=== PATIENT | female | born 1985 | race Caucasian/White ===

== ENCOUNTER 2016-10-18 14:12 | Outpatient (CLI) | payer MEDICAID | END 2016-10-18 14:13 | disposition home or self-care (01) | DX: M79.671 Pain in right foot (principal) ==

== ENCOUNTER 2017-01-23 10:29 | Outpatient (CLI) | payer MEDICAID ==
--- NOTE | 2017-01-23 11:25 | Ultrasound Report ---
LEFT BREAST ULTRASOUND: 01/23/2017 CLINICAL INDICATION: Palpable abnormality, pain left upper outer quadrant. TECHNIQUE: Real-time scanning was performed with field sales representative static images obtained. FINDINGS: Ultrasound of the region of pain and palpable abnormality identified by the patient was pe rformed. At the 2 o'clock position, 8 cm from the nipple, there is a cluster of simple cysts, measuring in agg regate 1.8 x 0.2 x 0.2 cm. No sonographically suspicious findings are identified. IMPRESSION: BENIGN FINDINGS. RECOMMENDATION: ROUTINE ANNUAL SCREENING, TO COMMENCE AT AGE 42, UNLESS OTHERWISE CLINICALLY INDICATE D. CONTINUED CLINICAL SURVEILLANCE. BIRADS CATEGORY 2-BENIGN FINDINGS. JOB #: [id number] EXT JOB #:[id number]
== END 2017-01-23 10:30 | disposition home or self-care (01) ==
LOC: DI 10:29
PROVIDERS: ATTEND Nurse Practitioner Family
DX: N64.4 Mastodynia (principal)
CPT/HCPCS: 76642

== ENCOUNTER 2017-06-09 08:00 | Outpatient (CLI) | payer MEDICAID | END 2017-06-09 08:01 | disposition home or self-care (01) | LOC: LAB.R 08:00 | PROVIDERS: ATTEND Obstetrics & Gynecology | DX: Z11.3 Encounter for screening for infections with a predominantly sexual mode of transmission (principal) | CPT/HCPCS: 87491; 87591 ==

== ENCOUNTER 2017-06-18 11:52 | Emergency (ER) | payer MEDICAID ==
[2017-06-18] MEDS ORDERED: ONDANSETRON 4 MG/2 ML VIAL IVP STA (12:32)
[2017-06-18] MEDS ORDERED: SODIUM CHLORIDE 0.9% 1,000 ML IV ONE (12:32)
--- NOTE | 2017-06-18 12:35 | ED Physician Documentation ---
PD HPI NVD - Stated complaint Stated Complaint: VOMITING/8WK OB - Chief complaint Chief Complaint: Abd Pain - History obtained from History obtained from: Patient - History of Present Illness Timing - onset: Other ( at 8 weeks Whose had issues with vomiting, worse over the last 24 hours now with some diarrhea but no significant abdominal pain , cramping, or bleeding. No urinary complaints. She tried vitamin B6 and Unisom already without any relief.) Review of Systems Constitutional: denies: Fever, Chills, Fatigue GI: reports: Nausea, Vomiting, Diarrhea. 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 HEENT: Chronic vision loss Psych: Depression Musculoskeletal: None Derm: None - Past Surgical History Past Surgical History: Yes HEENT: Myringotomy (tubes) - Present Medications Home Medications: Ambulatory Orders Medication Instructions Recorded Confirmed Metoclopramide [Reglan] 10 mg PO Q6H PRN #20 tablet 06/18/17 Ondansetron HCl [Zofran] 4 mg PO Q6H PRN #10 tablet 06/18/17 - Allergies Allergies/Adverse Reactions: Allergies Allergy/AdvReac Type Severity Reaction Status Date / Time Sulfa (Sulfonamide Allergy Rash Verified 06/18/17 11:59 Antibiotics) - Social History Does the pt smoke?: No Smoking Status: Never smoker Does the pt drink ETOH?: No Does the pt have substance abuse?: No - Immunizations Immunizations are current?: Yes Immunizations: TDAP >10years/unknown PD ED PE NORMAL - Vitals Vital signs reviewed: Yes - General General: Alert and oriented X 3, No acute distress - HEENT HEENT: PERRL, EOMI, Pharynx benign - Neck Neck: Supple, no meningeal sign, No bony TTP - Cardiac Cardiac: RRR, No murmur - Respiratory Respiratory: No respiratory distress, Clear bilaterally - Abdomen Abdomen: Normal bowel sounds, Soft, Non tender - Female Female : Other (Bedside ultrasound demonstrates single live intrauterine with heart rate of 165.) - Back Back: No CVA TTP, No spinal TTP - Derm Derm: Normal color, Warm and dry - Extremities Extremities: No edema, No calf tenderness / cord - Neuro Neuro: Alert and oriented X 3, Normal speech - Psych Psych: Normal mood, Normal affect Results - Vitals Vitals: Vital Signs - 24 hr 06/18/17 06/18/17 11:58 12:58 Temperature 36.3 C L 36.8 C Heart Rate 89 76 Respiratory 16 12 Rate Blood Pressure 120/71 113/66 O2 Saturation 99 100 Oxygen O2 Source Room air - Labs Labs: Laboratory Tests 06/18/17 12:28 Sodium 134 L Potassium 3.4 L Chloride 105 Carbon Dioxide 20 L Anion Gap 9.0 BUN 9 Creatinine 0.5 Estimated GFR (MDRD) 146 Glucose 85 Calcium 9.6 Total Bilirubin 1.1 H AST 14 ALT 18 Alkaline Phosphatase 29 L Total Protein 6.7 Albumin 4.3 Globulin 2.4 Albumin/Globulin Ratio 1.8 Lipase 23 PD MEDICAL DECISION MAKING - ED course ED course: 31-year-old woman with hyperemesis gravidarum resistant to the usual beginning outpatient treatment. Mildly dehydrated with modest hypokalemia on labs which was repleted orally and passed an oral challenge after a liter of IV fluids and Zofran here. Departure - Departure Disposition: 01 Home, Self Care Clinical Impression: Hyperemesis gravidarum Condition: Good Record reviewed to determine appropriate education?: Yes Instructions: ED Preg Morning Sickness Prescriptions: Metoclopramide [Reglan] 10 mg PO Q6H PRN #20 tablet PRN Reason: Nausea / Vomiting Ondansetron HCl [Zofran] 4 mg PO Q6H PRN #10 tablet PRN Reason: Nausea / Vomiting Comments: Start with the reglan/metoclopramide, add the zofran only if that doesn't work.
[2017-06-18] MEDS ORDERED: ONDANSETRON 4 MG/2 ML VIAL ONE (12:54)
[2017-06-18 13:08] LABS: ALBUMIN/GLOBULIN RATIO 1.8 (1.0-2.2); BILIRUBIN,TOTAL 1.1 mg/dL (0.2-1.0); CALCIUM 9.6 mg/dL (8.5-10.3); CREATININE 0.5 mg/dL (0.4-1.0); POTASSIUM 3.4 mmol/L (3.5-5.0); TOTAL PROTEIN 6.7 g/dL (6.7-8.2)
[2017-06-18] MEDS ORDERED: POTASSIUM BICARB 25 MEQ TABLET PO STA (13:15)
[2017-06-18] MEDS ORDERED: POTASSIUM BICARB 25 MEQ TABLET PO ONE (13:29)
[2017-06-18 14:14] VITALS: BP 110/70
== END 2017-06-18 14:13 | disposition home or self-care (01) ==
LOC: ED 11:52
DX: O21.1 Hyperemesis gravidarum with metabolic disturbance (principal); Z3A.08 8 weeks gestation of pregnancy
CPT/HCPCS: 36415; 80053; 83690; 96361; 96374; 99283; A9270

== ENCOUNTER 2017-07-16 14:58 | Outpatient (CLI) | payer MEDICAID ==
[2017-07-16 15:38] LABS: BILIRUBIN,URINE NEGATIVE (NEGATIVE); GLUCOSE, URINE (UA) NEGATIVE (NEGATIVE); KETONES,URINE (UA) NEGATIVE (NEGATIVE); LEUKOCYTE ESTERASE, URINE NEGATIVE (NEGATIVE); NITRITE,URINE NEGATIVE (NEGATIVE); OCCULT BLOOD,URINE NEGATIVE (NEGATIVE); PROTEIN,URINE NEGATIVE (NEGATIVE); UROBILINOGEN,URINE 0.2 (NORMAL) E.U./dL (NORMAL)
[2017-07-16 15:45] LABS: CLARITY,URINE CLEAR (CLEAR)
[2017-07-16 15:46] LABS: AMORPHOUS SEDIMENT,UR Moderate /LPF; BACTERIA,URINE Few /HPF (None Seen); RBC,URINE 0-5 /HPF (0-5); SQUAMOUS EPITHELIAL CELL,UR FEW Squamous (<= Few)
[2017-07-16 15:54] LABS: BASOPHILS % (AUTO) 0.5 %; EOSINOPHILS % (AUTO) 0.6 %; HGB - HEMOGLOBIN 13.1 g/dL (12.0-16.0); LYMPHOCYTES # (AUTO) 1.4 10^3/uL (1.5-3.5); LYMPHOCYTES % (AUTO) 17.4 %; MEAN CORPUSCULAR VOLUME 91.3 fL (81.0-99.0); MEAN PLATELET VOLUME 8.5 fL (7.9-10.8); MONOCYTES # (AUTO) 0.4 10^3/uL (0.0-1.0); MONOCYTES % (AUTO) 5.7 %; NEUTROPHILS # (AUTO) 5.9 10^3/uL (1.5-6.6); NEUTROPHILS % (AUTO) 75.8 %; PLT - PLATELET COUNT 160 10^3/uL (130-450); RED BLOOD COUNT 4.11 10^6/uL (4.20-5.40); RED CELL DISTRIBUTION WIDTH 13.3 % (12.0-15.0); WHITE BLOOD COUNT 7.8 x10^3/uL (4.8-10.8)
[2017-07-17 13:51] LABS: HIV AG/AB 4TH GEN NON-REACTIVE (NON-REACTIVE)
[2017-07-17 14:01] LABS: HEPATITIS B SURFACE ANTIGEN NON-REACTIVE (NON-REACTIVE)
== END 2017-07-16 14:59 | disposition home or self-care (01) ==
LOC: LAB 14:58
PROVIDERS: ATTEND Obstetrics & Gynecology
DX: Z36.9 Encounter for antenatal screening, unspecified (principal); Z13.79 Encounter for other screening for genetic and chromosomal anomalies
CPT/HCPCS: 36415; 81001; 81599; 82105; 82677; 84163; 84702; 85025; 86336; 86592; 86762; 86850; 86900; 86901; 87340; 87389

== ENCOUNTER 2017-08-07 10:08 | Outpatient (CLI) | payer MEDICAID | END 2017-08-07 10:09 | disposition home or self-care (01) | LOC: LAB 10:08 | PROVIDERS: ATTEND Obstetrics & Gynecology | DX: Z36.9 Encounter for antenatal screening, unspecified (principal) | CPT/HCPCS: 36415; 81599; 82105; 82677; 84163; 84702; 86336 ==

== ENCOUNTER 2017-08-14 14:12 | Outpatient (CLI) | payer SELFPAY | END 2017-08-14 14:13 | disposition home or self-care (01) | LOC: LAB 14:12 | PROVIDERS: ATTEND Obstetrics & Gynecology | DX: Z13.79 Encounter for other screening for genetic and chromosomal anomalies (principal) | CPT/HCPCS: 36415 ==

== ENCOUNTER 2017-08-14 14:57 | Outpatient (CLI) | payer MEDICAID ==
--- NOTE | 2017-08-15 14:11 | Ultrasound Report ---
OB ULTRASOUND: 08/14/2017 CLINICAL INDICATION: Abnormal alpha feta protein screen, evaluate spine and dating. TECHNIQUE: Real-time scanning was performed with inside sales account representative static images obtained. LAST MENSTRUAL PERIOD: 04/23/2017 Clinical Age: 16 weeks 1 day US Age: 17 weeks 4 days EFW Hadlock: 189 grams EFW% Hadlock: > 97% Heart Rate: 154 bpm EDC: 01/28/2018 US EDC: 01/18/2018 BPD Hadlock: 18 weeks 1 day; Mean mm 40 HC Hadlock: 17 weeks 5 days; Mean mm 145 AC Hadlock: 17 weeks 4 days; Mean mm 118 FL Hadlock: 16 weeks 6 days; Mean mm 23 Presentation: variable Placental Location: anterior-L Cervical Length: 5.2 cm Amniotic Fluid: 5.1 cm FINDINGS There is a single viable intrauterine gestation, in variable position. heart rate is 154 BPM. The placenta is anterior, without evidence of previa. Amniotic fluid volume is subjectively normal, with deepest pocket of 5.1 cm. By size, the fetus measures 17 weeks 4 days (16 weeks 1 day by office dating). The spine and calvarium appear unremarkable. There is no sonographic evidence of a neural tube defect at this time. The right ovary demonstrates a cyst, measuring 3.4 cm maximal diameter ( previously 5 cm on office ultrasound per chart notes). No free fluid is present. IMPRESSION 1. NO EVIDENCE OF A NEURAL TUBE DEFECT. 2. DATING BY SIZE MEASURING 10 DAYS FURTHER ALONG THAN EXPECTED BY OFFICE DATING , WITH AN ESTIMATED DUE DATE, BY TODAY'S ULTRASOUND, OF 01/18/2018. 3. DECREASE IN SIZE OF RIGHT OVARIAN CYST. Results called to Dr. Diaz on 08/14/2017 at 4 p.m. TD: 08/15/2017 10:49 MTDD
== END 2017-08-14 14:58 | disposition home or self-care (01) ==
LOC: DI 14:57
PROVIDERS: ATTEND Obstetrics & Gynecology
DX: O34.82 Maternal care for other abnormalities of pelvic organs, second trimester (principal); N83.201 Unspecified ovarian cyst, right side; Z36.87 Encounter for antenatal screening for uncertain dates; R77.2 Abnormality of alphafetoprotein; Z3A.17 17 weeks gestation of pregnancy
CPT/HCPCS: 76805

== ENCOUNTER 2017-09-18 12:43 | Outpatient (CLI) | payer MEDICAID ==
--- NOTE | 2017-09-19 14:44 | Ultrasound Report ---
OB ULTRASOUND: 09/18/2017 CLINICAL INDICATION: anatomy. TECHNIQUE: Real-time scanning was performed with direct sales representative static images obtained. COMPARISON: 08/14/2017. LAST MENSTRUAL PERIOD 04/23/2017 Clinical Age 21 weeks 2 days US Age 22 weeks 3 days EFW Hadlock 513 grams EFW% Hadlock -- Heart Rate 152 bpm EDC 01/28/2018 US EDC 01/19/2018 BPD Hadlock 23 weeks 2 days; Mean mm 56 HC Hadlock 22 weeks 0 days; Mean mm 199 AC Hadlock 23 weeks 0 days; Mean mm 182 FL Hadlock 22 weeks 0 days; Mean mm 38 Presentation variable Placental Location anterior Cervical Length TA 6.3 cm Amniotic Fluid 17.47 cm; subjectively normal; MVP 6.7 cm FINDINGS There is a single viable intrauterine gestation, in variable position. heart rate is 152 BPM. The placenta is anterior. The umbilical cord insertion into the placenta is eccentric, inserting 1 cm from the placental margin. Amniotic fluid volume is subjectively normal, with a deepest pocket of 6.7 cm. By size, the fetus measures 22 weeks 3 days (21 weeks 2 days by LMP). The following anatomic structures were visualized and appear normal: The intracranial contents, including the ventricles and posterior fossa; the lips and orbits; the spine; the heart, including 4 chamber view and outflow tracts, and diaphragm; the abdominal contents, including the stomach, the bilateral kidneys, and urinary bladder, as well as a normal 3 vessel cord insertion; 4 limbs. Note is made of mild left renal pelviectasis, measuring 4 mm. Right ovarian cyst is stable. Left ovary is unremarkable. No free fluid is present. IMPRESSION SINGLE VIABLE INTRAUTERINE GESTATION, WITH EXPECTED GROWTH. MILD LEFT RENAL PELVIECTASIS, MEASURING 4 MM. ECCENTRIC UMBILICAL CORD INSERTION INTO THE PLACENTA. TD: 09/18/2017 18:09 BANDAR
== END 2017-09-18 12:44 | disposition home or self-care (01) ==
LOC: DI 12:43
PROVIDERS: ATTEND Obstetrics & Gynecology
DX: Z36.9 Encounter for antenatal screening, unspecified (principal)
CPT/HCPCS: 76811

== ENCOUNTER 2017-09-22 10:20 | Outpatient (CLI) | payer MEDICAID | END 2017-09-22 10:21 | disposition home or self-care (01) | LOC: LAB.R 10:20 | PROVIDERS: ATTEND Nurse Practitioner Family | DX: J02.9 Acute pharyngitis, unspecified (principal) | CPT/HCPCS: 87070 ==

== ENCOUNTER 2018-11-20 16:27 | Outpatient (CLI) | payer MEDICAID ==
--- NOTE | 2018-11-23 09:06 | XRAY Report ---
Reason: BACK PAIN,LUMBAR WITH RADICULOPATHY Procedure Date: 11/20/2018 Accession Number: [id number] / [id number] Procedure: XR - Lumbar Spine 2 View CPT Code: FULL RESULT: EXAM: LUMBOSACRAL SPINE RADIOGRAPHY EXAM DATE: 11/20/2018 04:59 PM. CLINICAL HISTORY: Back pain COMPARISONS: None. TECHNIQUE: 3 views. FINDINGS: Alignment: Normal. No spondylolisthesis or scoliosis. Bones: Five [id number] lumbar vertebral bodies are present. No fractures or bone lesions. Disks: Normal. Disk heights are maintained. Facets: No degenerative changes. Sacroiliac Joints: Unremarkable. IMPRESSION: Normal lumbar spine radiography. RADIA
== END 2018-11-20 16:28 | disposition home or self-care (01) ==
LOC: DI 16:27
PROVIDERS: ATTEND Nurse Practitioner
DX: M54.16 Radiculopathy, lumbar region (principal)
CPT/HCPCS: 72100

== ENCOUNTER 2019-01-11 09:50 | Emergency (ER) | payer MEDICAID ==
--- NOTE | 2019-01-11 10:35 | ED Physician Documentation ---
PD HPI LOWER EXT INJURY - Stated complaint Stated Complaint: RT FT PINKY TOE PAIN - Chief complaint Chief Complaint: Trauma Ext - History obtained from History obtained from: Patient - History of Present Illness PD HPI LOW EXT INJURY LOCATION: Right, Toe (little and 4th toe, struck on furniture.) Type of injury: Blunt / blow (struck toe on furniture.) Where injury occurred: Home Timing - onset: Last night Worsened by: Moving, Palpating, Other (walking) Associated symptoms: Swelling. 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 HEENT: Chronic vision loss Psych: Depression Musculoskeletal: None Derm: None - Past Surgical History Past Surgical History: Yes HEENT: Myringotomy (tubes) - Present Medications Home Medications: Ambulatory Orders Medication Instructions Recorded Confirmed No Known Home Medications 07/31/17 07/31/17 - Allergies Allergies/Adverse Reactions: Allergies Allergy/AdvReac Type Severity Reaction Status Date / Time Sulfa (Sulfonamide Allergy Rash Verified 01/11/19 09:58 Antibiotics) - Social History Does the pt smoke?: Yes Smoking Status: Current some day smoker Does the pt drink ETOH?: Yes Does the pt have substance abuse?: Yes Substance Use and Type: Marijuana - Immunizations Immunizations are current?: Yes Immunizations: TDAP >10years/unknown PD ED PE NORMAL - Vitals Vital signs reviewed: Yes - General General: Alert and oriented X 3, No acute distress, Well developed/nourished - Derm Derm: Normal color, Warm and dry - Extremities Extremities: Other (right little toe with tenderness and some swelling at proximal portion. No gross deformity. 3rd and 4th toes tender as well but moveable without much pain. ) - Neuro Neuro: No motor deficit, No sensory deficit Results - Vitals Vitals: Vital Signs - 24 hr 01/11/19 09:56 Temperature 36.9 C Heart Rate 87 Oxygen O2 Source Room air - Rads (name of study) toes Radiology: Prelim report reviewed, EMP read contemporaneously (nondisplaced fracture of proximal phalanx shaft of little toe. ), See rad report PD MEDICAL DECISION MAKING - ED course Complexity details: re-evaluated patient (patient shown yuli taping and anchor taping to the foot as options for stabilizing movement. ), considered differential, d/w patient Departure - Departure Disposition: 01 Home, Self Care Clinical Impression: Toe fracture, right Qualifiers: Encounter type: initial encounter Toe: lesser toe Fracture type: closed Phalanx: proximal Fracture alignment: nondisplaced Qualified Code(s): S92.514A - Nondisplaced fracture of proximal phalanx of right lesser toe(s), initial encounter for closed fracture Foot contusion Qualifiers: Encounter type: initial encounter Laterality: right Qualified Code(s): S90.31XA - Contusion of right foot, initial encounter Condition: Stable Record reviewed to determine appropriate education?: Yes Instructions: ED Fx Toe Closed Follow-Up: Jennifer Wilson DNP [Primary Care Provider] - Comments: Yuli tape or anchor taping for the toe to reduce motion of it. Firm sole shoe as well for the same purpose. Elevate and rest the foot often today and tomorrow to reduce swelling. Naproxen or ibuprofen 2 or 3 times daily. Add Tylenol if needed. This will likely take about 3 to 4 weeks to heal fully but will be considerable decrease in pain as the swelling goes down over the first few days and then again at about a week and a half when the bone is healed enough to not have movement to it. Discharge Date/Time: 01/11/19 11:27
--- NOTE | 2019-01-11 10:49 | XRAY Report ---
Reason: bruising, struck toes on end table Procedure Date: 01/11/2019 Accession Number: [id number] / [id number] Procedure: XR - Foot 3 View RT CPT Code: FULL RESULT: EXAM: RIGHT FOOT RADIOGRAPHY EXAM DATE: 01/11/2019 10:37 AM. CLINICAL HISTORY: Bruising, struck toes on end table. COMPARISON: FOOT 3 VIEW RT 10/18/2016 2:41 PM. TECHNIQUE: 3 views. FINDINGS: Bones: Fifth proximal phalanx base transverse fracture mild angulation. Joints: Normal. No subluxations. Soft Tissues: Soft tissue swelling. IMPRESSION: Fifth proximal phalanx base fracture RADIA
[2019-01-11] MEDS ORDERED: IBUPROFEN 600 MG TABLET PO STA (11:06)
== END 2019-01-11 11:27 | disposition home or self-care (01) ==
LOC: ED 09:50
DX: S92.514A Nondisplaced fracture of proximal phalanx of right lesser toe(s), initial encounter for closed fracture (principal); S90.31XA Contusion of right foot, initial encounter; W22.03XA Walked into furniture, initial encounter; Y92.009 Unspecified place in unspecified non-institutional (private) residence as the place of occurrence of the external cause; F17.200 Nicotine dependence, unspecified, uncomplicated
CPT/HCPCS: 73630; 99282; 99283; A9270

== ENCOUNTER 2019-01-20 13:23 | Outpatient (CLI) | payer MEDICAID ==
[2019-01-20 13:36] LABS: BASOPHILS # (AUTO) 0.1 10^3/uL (0.0-0.1); BASOPHILS % (AUTO) 0.9 %; EOSINOPHILS % (AUTO) 0.6 %; HGB - HEMOGLOBIN 13.3 g/dL (12.0-16.0); LYMPHOCYTES # (AUTO) 1.7 10^3/uL (1.5-3.5); LYMPHOCYTES % (AUTO) 26.5 %; MEAN CORPUSCULAR HEMOGLOBIN 31.1 pg (27.0-31.0); MEAN CORPUSCULAR HGB CONC 33.5 g/dL (32.0-36.0); MEAN CORPUSCULAR VOLUME 92.8 fL (81.0-99.0); MEAN PLATELET VOLUME 10.3 fL (7.9-10.8); MONOCYTES # (AUTO) 0.5 10^3/uL (0.0-1.0); NEUTROPHILS # (AUTO) 4.2 10^3/uL (1.5-6.6); NEUTROPHILS % (AUTO) 64.5 %; PLT - PLATELET COUNT 166 10^3/uL (130-450); RED BLOOD COUNT 4.28 10^6/uL (4.20-5.40); WHITE BLOOD COUNT 6.6 x10^3/uL (4.8-10.8)
== END 2019-01-20 13:24 | disposition home or self-care (01) ==
LOC: LAB 13:23
PROVIDERS: ATTEND Obstetrics & Gynecology
DX: Z30.09 Encounter for other general counseling and advice on contraception (principal)
CPT/HCPCS: 36415; 85025

== ENCOUNTER 2019-03-02 12:35 | Emergency (ER) | payer MEDICAID ==
--- NOTE | 2019-03-02 12:50 | ED Physician Documentation ---
PD HPI UPPER EXT INJURY - Stated complaint Stated Complaint: ARM LAC - History obtained from History obtained from: Patient - History of Present Illness Location: Right (Woman who is up-to-date on tetanus who cut her arm this morning while vacuuming on the back of a chair, she thinks something was sticking out potentially like a nail or something and she has a laceration on the dorsal right forearm.) Review of Systems Constitutional: reports: Reviewed and negative Throat: reports: Reviewed and negative Cardiac: reports: Reviewed and negative PD PAST MEDICAL HISTORY - Past Medical History Cardiovascular: None Respiratory: Asthma Endocrine/Autoimmune: None 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 HEENT: Chronic vision loss Psych: Depression Musculoskeletal: None Derm: None - Past Surgical History Past Surgical History: Yes HEENT: Myringotomy (tubes) - Present Medications Home Medications: Ambulatory Orders Medication Instructions Recorded Confirmed Albuterol Sulfate [Albuterol 1 - 2 puffs IH PRN PRN 01/20/19 01/20/19 Sulfate Hfa] Norethindrone 0.35 mg PO DAILY 01/20/19 01/20/19 Sertraline HCl 50 mg PO QPM 01/20/19 01/20/19 - Allergies Allergies/Adverse Reactions: Allergies Allergy/AdvReac Type Severity Reaction Status Date / Time Sulfa (Sulfonamide Allergy Hives Verified 03/02/19 12:47 Antibiotics) - Social History Does the pt smoke?: Yes Smoking Status: Current some day smoker Does the pt drink ETOH?: Yes Does the pt have substance abuse?: Yes - Immunizations Immunizations are current?: Yes Immunizations: TDAP >10years/unknown PD ED PE NORMAL - Vitals Vital signs reviewed: Yes - General General: Alert and oriented X 3, No acute distress - Extremities Extremities: Other (On the back of the forearm there is a very shallow laceration measuring 6 cm, although about a centimeter of it is just a scratch, the last centimeter is just into subcutaneous fat. There is no distal neurovascular compromise.) - Neuro Neuro: Alert and oriented X 3, Normal speech Results - Vitals Vitals: Oxygen O2 Source Room air Procedures - Laceration (location) R forearm Length in cm: 1 Wound type: Linear, Superficial, Into subcut fat Wound Preparation: Irrigated copiously NS Skin layer closure: Dermabond, Steri strips Other: Tetanus UTD Complexity: Simple Departure - Departure Disposition: Home, Self Care Clinical Impression: Laceration of right forearm Qualifiers: Encounter type: initial encounter Qualified Code(s): S51.811A - Laceration without foreign body of right forearm, initial encounter Condition: Good Record reviewed to determine appropriate education?: Yes Instructions: ED Laceration Ext Skin Glue
[2019-03-02 12:51] VITALS: BP 113/61
== END 2019-03-02 12:59 | disposition home or self-care (01) ==
LOC: ED 12:35
DX: S51.811A Laceration without foreign body of right forearm, initial encounter (principal); W26.9XXA Contact with unspecified sharp object(s), initial encounter; Y93.E3 Activity, vacuuming; F17.200 Nicotine dependence, unspecified, uncomplicated
CPT/HCPCS: 12001; 99281

== ENCOUNTER 2020-03-13 13:56 | Outpatient (CLI) | payer MEDICAID ==
--- NOTE | 2020-03-13 17:47 | XRAY Report ---
PROCEDURE: Hand 2 View RT INDICATIONS: PAIN IN RIGHT HAND TECHNIQUE: 2 views of the hand(s) acquired. COMPARISON: None FINDINGS: Bones: No fractures or dislocations. No suspicious bony lesions. Soft tissues: No suspicious soft tissue calcifications. IMPRESSION: No fracture. No osseous lesion. If there is continued clinical concern for pathology, then repeat karuna in film radiographs (7-10 days) or advanced imaging (CT, MR, bone scan) should be considered for furt her evaluation. Reviewed by: Paz Golden MD, PhD on 03/13/2020 5:46 PM PDT Approved by: Paz Golden MD, PhD on 03/13/2020 5:46 PM PDT Station ID: [id number]
== END 2020-03-13 13:57 | disposition home or self-care (01) ==
LOC: DI.S 13:56
PROVIDERS: ATTEND Internal Medicine
DX: M79.641 Pain in right hand (principal)

== ENCOUNTER 2022-05-06 17:30 | Outpatient (CLI) | payer MEDICAID ==
--- NOTE | 2022-05-06 16:53 | XRAY Report ---
PROCEDURE: Chest 2 View X-Ray INDICATIONS: LEFT SIDED RIB PAIN TECHNIQUE: 2 view(s) of the chest. COMPARISON: Chest and rib radiographs 01/04/2015 FINDINGS: Surgical changes and devices: None. Lungs and pleura: No pleural effusions or pneumothorax. Lungs are clear. Mediastinum: Mediastinal contours are normal. Heart size is normal. Bones and chest wall: No suspicious bony abnormalities. Soft tissues appear unremarkable. IMPRESSION: No acute cardiopulmonary abnormality. Reviewed by: Roderick Soares MD on 05/06/2022 4:52 PM PDT Approved by: Roderick Soares MD on 05/06/2022 4:52 PM PDT Station ID: [id number]
== END 2022-05-06 17:31 | disposition home or self-care (01) ==
LOC: DI.S 17:30
PROVIDERS: ATTEND Physician Assistant Medical
DX: R07.81 Pleurodynia (principal)

== ENCOUNTER 2023-03-05 15:51 | Emergency (ER) | payer MEDICAID, OTHER ==
[2023-03-05 16:07] VITALS: BP 109/68; O2SAT 100
[2023-03-05] MEDS ORDERED: ERYTHROMYCIN OPHTH OINT 1 GM TUBE LEFTEYE STA (16:12)
--- NOTE | 2023-03-05 16:23 | ED Physician Documentation ---
History of Present Illness - Stated complaint Stated Complaint: LEFT EYE PX - Chief complaint Chief Complaint: Heent - Additonal information Additional information: 37-year-old female who is a daily contact lens user presents emergency depar tment for evaluation of acute left eye redness inflammation and tearing. Reports that she typically changes her contact lenses every day but slept in them last night. When she woke up this morning she remove the old contacts and put in a fresh pair. Shortly thereafter when she was walking outside she began to have pain in the left eye with tearing and watering. No loss of vision. She does have a history of contact lens associated infections in the past. Review of Systems Eyes: reports: Photophobia, Discharge, Irritation. 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 HEENT: Chronic vision loss Psych: Depression Musculoskeletal: None Derm: None - Past Surgical History Past Surgical History: Yes HEENT: Myringotomy (tubes) - Present Medications Home Medications: Ambulatory Orders Medication Instructions Recorded Confirmed Levonorgestrel 20 Mcg/24H [Mirena] 1 each IY 03/05/23 03/05/23 Moxifloxacin HCl [Vigamox] 3 ml OP TID 7 Days #3 ml 03/05/23 - Allergies Allergies/Adverse Reactions: Allergies Allergy/AdvReac Type Severity Reaction Status Date / Time Sulfa (Sulfonamide Allergy Hives Verified 03/05/23 15:59 Antibiotics) - Social History Does the pt smoke?: Yes Smoking Status: Current some day smoker Does the pt drink ETOH?: Yes Does the pt have substance abuse?: Yes - Immunizations Immunizations are current?: Yes Immunizations: TDAP >10years/unknown PD ED PE EXPANDED - Eyes Eyes: EOMI, Left eye (generalized conjunctival injection and erythema. negative fluorsceine. No pain in the left eye when light is shined in the right. Positive photophobia in the left eye.), Anterior chambers clear. No: Corneal FB, Corneal abrasion, Corneal ulcer, Fluorescein uptake Results - Vitals Vitals: Vital Signs - 24 hr 03/05/23 15:57 Temperature 36.2 C L Heart Rate 72 Respiratory 16 Rate Blood Pressure 109/68 O2 Saturation 100 Oxygen O2 Source Room air PD Medical Decision Making - ED course Complexity details: reviewed results, re-evaluated patient, considered differential, d/w patient ED course: 37-year-old female presents emergency department for evaluation of acute left eye redness erythema injection and clear watering. She is a daily contact lens user who slept in her contact lenses overnight. She remove the old ones and put new ones in. Shortly thereafter she began having pain in the left eye. On exam she has no Pain in the left eye when the light is shined in the right 1. However she does have photophobia in the left eye. Extraocular movements are intact. Clear anterior chambers. Negative fluorescein stain. Given the lack of contralateral photophobia I suspect that she likely has a keratitis or conjunctivitis associated with contact lens use. Given this she will be started on a fluoroquinolone eyedrop. She is advised very prompt follow-up with her hspt tutor at [facility] this week. She is also advised to discontinue contact lens use until cleared by her hspt tutor.The usual emergent return precautions for failure symptoms to resolve was discussed. Departure - Departure Disposition: 01 Home, Self Care Clinical Impression: Contact lens related conjunctivitis Condition: Stable Record reviewed to determine appropriate education?: Yes Prescriptions: Moxifloxacin HCl [Vigamox] 3 ml OP TID 7 Days #3 ml Comments: Crystal I suspect that you either have a keratitis or a contact lens associated conjunctivitis. In order to treat this I would like you to stop using your contact lenses until cleared by your hspt tutor. Please place 1 drop of the antibiotic drops in your left eye 3 times a day for 1 week. It is critical that you follow-up with your hspt tutor this week. Return to the ER if you are having new or worsening symptoms.
== END 2023-03-05 16:39 | disposition home or self-care (01) ==
LOC: ED 15:51
DX: H10.9 Unspecified conjunctivitis (principal); F17.200 Nicotine dependence, unspecified, uncomplicated
CPT/HCPCS: 99282; 99283

== ENCOUNTER 2023-05-29 08:00 | Outpatient (CLI) | payer BC | END 2023-05-29 23:59 | disposition home or self-care (01) | LOC: LAB.S 08:00 | PROVIDERS: ATTEND Physician Assistant Medical | DX: R07.0 Pain in throat (principal) | CPT/HCPCS: 87070 ==

== ENCOUNTER 2023-07-07 11:30 | Day surgery (SDC) | payer BC ==
--- NOTE | 2023-07-07 12:01 | ED Physician Documentation ---
PD HPI FEMALE - Stated complaint Stated Complaint: ABD PX,CRAMPS - Chief complaint Chief Complaint: Abd Pain - History obtained from History obtained from: Patient - History of Present Illness Timing - onset: How many days ago (4) Timing - duration: Days (4) Timing - details: Gradual onset, Still present (worse overnight and this morning, with abrupt increase in pain.), Waxing and waning Associated symptoms: Abdominal pain (LLQ). No: Fever, Back pain, Vaginal bleeding, Vaginal discharge, Dysuria Similar symptoms before: Has not had sx before Recently seen: Clinic (went to Walk In about the pain and had positive urine preg test. Not expected by the patient.) Review of Systems Constitutional: reports: Other (last meal was 8 am this morning.). denies: Fever Nose: denies: Rhinorrhea / runny nose, Congestion Throat: denies: Sore throat Respiratory: denies: Cough GI: reports: Abdominal Pain (LLQ for 3-4 days, increasing), Nausea. denies: Vomiting, Diarrhea : denies: Dysuria, Discharge PD PAST MEDICAL HISTORY - Past Medical History Past Medical History: Yes Cardiovascular: None Respiratory: Asthma Endocrine/Autoimmune: None GI: None [employer]: None : None HEENT: Chronic vision loss Psych: Depression Musculoskeletal: None Derm: None - Past Surgical History Past Surgical History: Yes Ortho: Carpal Tunnel surgery HEENT: Myringotomy (tubes) - Present Medications Home Medications: Ambulatory Orders Medication Instructions Recorded Confirmed Levonorgestrel 20 Mcg/24H [Mirena] 1 each IY 03/05/23 03/05/23 Moxifloxacin HCl [Vigamox] 3 ml OP TID 7 Days #3 ml 03/05/23 - Allergies Allergies/Adverse Reactions: Allergies Allergy/AdvReac Type Severity Reaction Status Date / Time Sulfa (Sulfonamide Allergy Hives Verified 07/07/23 11:56 Antibiotics) - Social History Does the pt smoke?: Yes Smoking Status: Current every day smoker Does the pt drink ETOH?: Yes Does the pt have substance abuse?: Yes Substance Use and Type: Marijuana - Immunizations Immunizations are current?: Yes Immunizations: TDAP >10years/unknown PD ED PE NORMAL - Vitals Vital signs reviewed: Yes - General General: Alert and oriented X 3, Well developed/nourished, Other (appears uncomforrtable due to abd pain.) - Neck Neck: Supple, no meningeal sign, No adenopathy - Cardiac Cardiac: RRR, No murmur - Respiratory Respiratory: No respiratory distress, Clear bilaterally - Abdomen Abdomen: Normal bowel sounds, Soft, Non distended, No organomegaly, Other (very tender LLQ with local guarding and percussion tender. ) - Female Female : Deferred - Derm Derm: Normal color, Warm and dry Results - Vitals Vitals: Vital Signs - 24 hr 07/07/23 07/07/23 07/07/23 11:51 11:55 13:55 Temperature 36.6 C 3.1 C L Heart Rate 95 68 68 Respiratory 16 14 16 Rate Blood Pressure 147/86 H 117/79 118/76 O2 Saturation 99 100 100 Oxygen O2 Source Room air - Labs Labs: Laboratory Tests 07/07/23 07/07/23 07/07/23 13:04 13:04 13:04 WBC 4.9 RBC 4.18 L Hgb 12.9 Hct 37.8 MCV 90.4 MCH 30.9 MCHC 34.1 RDW 11.9 L Plt Count 160 MPV 10.2 Neut # (Auto) 3.1 Lymph # (Auto) 1.1 L [place] # (Auto) 0.6 Eos # (Auto) 0.0 Baso # (Auto) 0.1 Absolute Nucleated RBC 0.00 Nucleated RBC % 0.0 Sodium 137 Potassium 3.6 Chloride 107 Carbon Dioxide 25 Anion Gap 5.0 L BUN 10 Creatinine 0.5 L Estimated GFR (MDRD) 140 Glucose 94 Calcium 10.4 H Total Bilirubin 0.5 AST 12 ALT 13 Alkaline Phosphatase 41 L Total Protein 6.6 Albumin 4.4 Globulin 2.2 Albumin/Globulin Ratio 2.0 Lipase < 10 L Beta HCG, Quant 724.5 Blood Type O NEGATIVE - Rads (name of study) OB US Relevant Findings:: Prelim report reviewed, EMP independent interpretation of test PD Medical Decision Making - ED course Complexity details: reviewed results (The patient is at high risk for ectopic given a test positive with an IUD and left adnexal pain. The ultrasound shows a cystic mass in the adnexa and some free fluid in the pelvis.), considered differential (The patient with left lower quadrant pain for several days increasing and found to have a positive test. She has a low quant at 749. She does have an IUD. Concerning for high risk of ectopic. Ultrasound showed the IUD intrauterine without any uterine gestation. Adnexal cystic mass. ), d/w patient, d/w student union consultant ([employer] Dr. Lancaster, who will come to ED to see the pt. ) Reviewed Lab Results: Patient is blood type O-negative. Given IV fluids. Departure - Departure Disposition: ED Transfer to [facility] Clinical Impression: Left lower quadrant abdominal pain, , Ectopic Condition: Stable
[2023-07-07 13:11] LABS: BASOPHILS # (AUTO) 0.1 10^3/uL (0.0-0.1); EOSINOPHILS % (AUTO) 0.6 %; HCT - HEMATOCRIT 37.8 % (37.0-47.0); HGB - HEMOGLOBIN 12.9 g/dL (12.0-16.0); LYMPHOCYTES # (AUTO) 1.1 10^3/uL (1.5-3.5); LYMPHOCYTES % (AUTO) 21.9 %; MEAN CORPUSCULAR HEMOGLOBIN 30.9 pg (27.0-31.0); MEAN CORPUSCULAR HGB CONC 34.1 g/dL (32.0-36.0); MEAN CORPUSCULAR VOLUME 90.4 fL (81.0-99.0); MEAN PLATELET VOLUME 10.2 fL (7.9-10.8); MONOCYTES # (AUTO) 0.6 10^3/uL (0.0-1.0); NEUTROPHILS # (AUTO) 3.1 10^3/uL (1.5-6.6); NEUTROPHILS % (AUTO) 63.1 %; PLT - PLATELET COUNT 160 10^3/uL (130-450); RED BLOOD COUNT 4.18 10^6/uL (4.20-5.40); RED CELL DISTRIBUTION WIDTH 11.9 % (12.0-15.0); WHITE BLOOD COUNT 4.9 x10^3/uL (4.8-10.8)
[2023-07-07 13:27] LABS: ALBUMIN 4.4 g/dL (3.2-5.5); ALKALINE PHOSPHATASE 41 IU/L (42-121); ALT ALANINE AMINOTRANSFERASE 13 IU/L (10-60); AST ASPARTATE AMINOTRANSFERASE 12 IU/L (10-42); BILIRUBIN,TOTAL 0.5 mg/dL (0.2-1.0); BUN - BLOOD UREA NITROGEN 10 mg/dL (6-20); CALCIUM 10.4 mg/dL (8.5-10.3); CARBON DIOXIDE - CO2 25 mmol/L (21-32); CHLORIDE 107 mmol/L (101-111); CREATININE 0.5 mg/dL (0.6-1.3); GFR - MDRD 140 (>89); GLUCOSE 94 mg/dL (74-104); POTASSIUM 3.6 mmol/L (3.5-4.5); SODIUM 137 mmol/L (135-145); TOTAL PROTEIN 6.6 g/dL (6.4-8.9)
[2023-07-07 13:31] LABS: LIPASE < 10 U/L (11-82)
--- NOTE | 2023-07-07 13:35 | Ultrasound Report ---
PROCEDURE: OB First Trimester w/TV INDICATIONS: lower abd pain, early preg OUTSIDE/PRIOR DATING DATA: Last menstrual period (LMP): Unknown, IUD in place. TECHNIQUE: Real-time scanning was performed of the fetus and maternal pelvic organs, with image documentation. Endovaginal scanning was also performed to better visualize the fetus and maternal ovaries. COMPARISON: None. FINDINGS: No intrauterine gestational sac present. Measurement variability in dating: +/- 4 weeks by LMP, +/- 7 days by mean sac diameter (use before 6 weeks gestation if crown-rump length not able to be measured), +/- 5 days by crown-rump length (6-12 weeks gestation). Maternal organs: Ovaries appear within normal limits. Intrauterine device in place. Free fluid withi n the endometrial canal. Cystic structure within the left adnexa measuring 1.4 cm. Free fluid is seen within the pelvis. IMPRESSION: Cystic structure within the left ovary/adnexa, ectopic is in the differential. Recommend cl inical correlation, beta-hCG trend and follow-up ultrasound. Findings were indicated to Dr. Benton at 1:04 PM on 07/07/2023. Reviewed by: Viral Aguilar MD on 07/07/2023 1:33 PM PST Approved by: Viral Aguilar MD on 07/07/2023 1:33 PM PST Station ID: [id number]
[2023-07-07] MEDS ORDERED: SODIUM CHLORIDE 0.9% 1,000 ML IV STA (13:55)
[2023-07-07] MEDS ORDERED: KETOROLAC 15 MG/ML VIAL IVP STA (13:57)
--- NOTE | 2023-07-07 15:15 | HISTORY & PHYSICAL EXAMINATION ---
History of Present Illness - History of Present Illness HPI Comment/Other: Patient is a 37-year-old G3, P3 who presented to the walk-in clinic this morning with left lower quadrant pain. Patient states she been having left lower quadrant pain for approximately a week which has worsened today and is 8 out of 10. She has had a small amount of spotting. She had an IUD placed 5 years ago. 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, Other ( x 3, Mirena IUD) : reports: None HEENT: reports: Chronic vision loss Psych: reports: Depression Musculoskeletal: reports: None Derm: reports: None MRSA Hx?: No - Past Surgical History Ortho: reports: Carpal Tunnel surgery HEENT: reports: Myringotomy (tubes) Meds/Allgy - Home Medications Home Medications: Ambulatory Orders Medication Instructions Recorded Confirmed Levonorgestrel 20 Mcg/24H [Mirena] 1 each IY 03/05/23 03/05/23 Moxifloxacin HCl [Vigamox] 3 ml OP TID 7 Days #3 ml 03/05/23 - Allergies Allergies/Adverse Reactions: Allergies Allergy/AdvReac Type Severity Reaction Status Date / Time Sulfa (Sulfonamide Allergy Hives Verified 07/07/23 11:56 Antibiotics) Review of Systems - Constitutional Constitutional: denies: Fatigue - Cardiovascular Cariovascular: denies: Chest pain - Respiratory Respiratory: denies: SOB at rest - Gastrointestinal Gastrointestinal: reports: Abdominal pain (Left lower quadrant pain 8/10) - All Other Systems All Other Systems: reports: Reviewed and negative Exam - Vital Signs Reviewed Vital Signs: Yes Vital Signs: Vital Signs x48h Temp Pulse Resp BP Pulse Ox 07/07/23 13:55 68 16 118/76 100 07/07/23 11:55 37.6 F L 68 14 117/79 100 07/07/23 11:51 97.9 F 95 16 147/86 H 99 - Physical Exam General Appearance: positive: Alert Respiratory: positive: Breath sounds nml Cardiovascular: positive: Regular rate & rhythm Abdomen: positive: Tenderness (Left lower quadrant tenderness) Skin: positive: Color nml Extremities: positive: No pedal edema Conclusion/Plan - Lab Results Fish Bones: 07/07/23 13:04 07/07/23 13:04 - Other Other Results/Comments: hCG is 724. Pelvic ultrasound is significant for free fluid in the posterior cul-de-sac. There is a 1.4 cm cystic lesion in the left adnexa which is concerning for ectopic . 37-year-old G3, P3 with suspected left-sided ectopic 1. ectopic : Discussed management options including medical and surgical management. Patient is in significant amount of pain in the emergency department. Risk, benefits, and alternatives discussed with patient given significant increase in pain today patient prefers surgical management.Patient previously had tubal consult and States that she was not able to receive a tubal immediately after delivery of her last child. She subsequently received a Mirena IUD. Patient desires permanent sterilization. Discussed risk, benefits, and alternatives. Discussed long-acting contraception alternatives. Patient desires permanent sterilization. Discussed risk of contraceptive failure. Discussed that this is permanent and that she has done childbearing. Patient would like Mirena IUD removed.Plan is for bilateral salpingectomies and removal of ectopic with removal of Mirena IUD.Informed consent was signed and all questions were answered.
--- NOTE | 2023-07-07 15:19 | ANESTHESIA ---
Pre-Anesthesia VS, & Labs - Diagnosis ectopic - Procedure ectopic , lap salpinjectomy, IUD removal Vital Signs: Temp Pulse Resp BP Pulse Ox O2 Flow Rate 3.1 C L 68 16 118/76 100 07/07/23 11:55 07/07/23 13:55 07/07/23 13:55 07/07/23 13:55 07/07/23 13:55 Height: 5 ft 6 in Weight (kg): 70.307 kg Body Mass Index: 25.0 BMI Classification: Overweight - NPO >8 hours - Is Patient ?: Yes (suspected ectopic) - Lab Results Current Lab Results: Laboratory Tests 07/07/23 13:04: Sodium 137, Potassium 3.6, Chloride 107, Carbon Dioxide 25, Anion Gap 5.0 L, BUN 10, Creatinine 0.5 L, Estimated GFR (MDRD) 140, Glucose 94, Calcium 10.4 H, Total Bilirubin 0.5, AST 12, ALT 13, Alkaline Phosphatase 41 L, Total Protein 6.6, Albumin 4.4, Globulin 2.2, Albumin/Globulin Ratio 2.0, Lipase < 10 L, Beta HCG, Quant 724.5 07/07/23 13:04: WBC 4.9, RBC 4.18 L, Hgb 12.9, Hct 37.8, MCV 90.4, MCH 30.9, MCHC 34.1, RDW 11.9 L, Plt Count 160, MPV 10.2, Neut # (Auto) 3.1, Lymph # (Auto) 1.1 L, [place] # (Auto) 0.6, Eos # (Auto) 0.0, Baso # (Auto) 0.1, Absolute Nucleated RBC 0.00, Nucleated RBC % 0.0 07/07/23 13:04: Blood Type O NEGATIVE Lab results reviewed: Yes Fish Bones: 07/07/23 13:04 07/07/23 13:04 Home Medications and Allergies Levonorgestrel 20 Mcg/24H [Mirena] 1 each IY 03/05/23 Allergies/Adverse Reactions: Allergies Allergy/AdvReac Type Severity Reaction Status Date / Time Sulfa (Sulfonamide Allergy Hives Verified 07/07/23 11:56 Antibiotics) Anes History & Medical History - Anesthetic History Anesthesia Complications: reports: No previous complications Family history of Anesthesia Complications: Denies Family history of Malignant Hyperthermia: Denies - Medical History Cardiovascular: reports: None Pulmonary: reports: Asthma Gastrointestinal: reports: None Urinary: reports: None Musculoskeletal: reports: None Endocrine/Autoimmune: reports: None Blood Disorders: reports: None Skin: reports: None Smoking Status: Current every day smoker History of Cancer?: No - Surgical History Eyes Ears Nose Throat (EENT): reports: Myringotomy (tubes) Orthopedic: reports: Carpal Tunnel surgery Exam General: Alert, Oriented x3, Cooperative Dental: Poor dentition Mouth Openin Fingerbreadth Neck Mobility: Normal Mallampati classification: II Thyromental Distance: 4-6 cm Respiratory: Lungs clear, Normal breath sounds, No respiratory distress Cardiovascular: Regular rate Neurological: Normal speech Mental/Cognitive Status: Alert/Oriented X3, Normal for patient Cognitive Status: Within normal limits Plan Anesthesia Type: General Consent for Procedure(s) Verified and Reviewed: Yes Code Status: Attempt Resuscitation ASA classification: 2-Mild systemic disease Is this case an emergency?: Yes
[2023-07-07] MEDS ORDERED: ATROPINE ABBOJECT 1 MG/10 ML SYRINGE IVP PRN (15:20)
[2023-07-07] MEDS ORDERED: ONDANSETRON 4 MG/2 ML VIAL IVP PRN (15:20)
[2023-07-07] MEDS ORDERED: METOCLOPRAMIDE 10 MG/2 ML VIAL IVP PRN (15:20)
[2023-07-07] MEDS ORDERED: fentaNYL 100 MCG/2 ML VIAL IVP PRN (15:20)
[2023-07-07] MEDS ORDERED: HYDROmorphone 0.5 MG/0.5 ML SYRINGE IVP PRN (15:20)
[2023-07-07] MEDS ORDERED: MORPHINE 2 MG/ML CARPUJECT IVP PRN (15:20)
[2023-07-07] MEDS ORDERED: ePHEDrine 50 MG/ML VIAL IVP PRN (15:20)
[2023-07-07] MEDS ORDERED: NALOXONE 0.4 MG/ML VIAL IVP PRN (15:20)
[2023-07-07] MEDS ORDERED: MIDAZOLAM 2 MG/2 ML VIAL ONE (15:28)
[2023-07-07] MEDS ORDERED: fentaNYL 100 MCG/2 ML VIAL ONE ×2 (15:28→17:15)
[2023-07-07] MEDS ORDERED: PROPOFOL 200 MG/20 ML VIAL IVP ONE (15:29)
[2023-07-07] MEDS ORDERED: ROCURONIUM 50 MG/5 ML VIAL ONE (15:30)
[2023-07-07] MEDS ORDERED: LIDOCAINE-PF 2% 10 ML AMP SUBQ ONE (15:30)
[2023-07-07] MEDS ORDERED: LACTATED RINGERS 1,000 ML IV SCH (16:00)
[2023-07-07] MEDS ORDERED: DEXAMETHASONE 4 MG/ML VIAL ONE (16:20)
[2023-07-07] MEDS ORDERED: ONDANSETRON 4 MG/2 ML VIAL ONE (16:20)
[2023-07-07] MEDS ORDERED: BUPIVACAINE 0.25% PF 30 ML VIAL ONE (16:38)
[2023-07-07] MEDS ORDERED: BUPIVACAINE 0.25% PF 30 ML VIAL SUBQ ONE ×2 (16:41)
[2023-07-07] MEDS ORDERED: SUGAMMADEX 200 MG/2 ML VIAL IVP ONE (17:01)
[2023-07-07] MEDS ORDERED: LACTATED RINGERS 1,000 ML IV ONE (17:32)
--- NOTE | 2023-07-07 17:42 | PROCEDURE REPORT ---
Hospitalist Procedure Note - Procedure Note Procedure Note: [facility]CH[facility] Operative Report Date: 07/07/2023 Pre-operative diagnosis: 1. Left ectopic 2. Multiparity desires permanent sterilization Post-operative diagnosis: Same Procedure: Laparoscopic bilateral salpingectomy, removal of left ectopic , evacuation of hemoperitoneum, Mirena IUD removal Surgeon: Eden Lancaster MD Assistants: Laurie GUEVARA Anesthesia: General EBL: 60 mL. Drains: None. Complications: None. Specimens: Bilateral fallopian tubes, left ectopic Findings: Small anteverted uterus. Hemoperitoneum. Left ectopic Indications: Patient is a 37-year-old G3, P3 who had Mirena IUD placed for contraception. She developed left lower quadrant pain approximately 1 week ago. She presented to urgent care this morning with worsening left lower quadrant pain. test at that time was positive. She was sent to the emergency department where quantitative hCG was greater than 700 and ultrasound was concerning for left ectopic . Patient had 8 out of 10 left lower quadrant pain. Risk, benefits, and alternatives of surgical versus medical management were discussed with patient at length and patient opted for surgical management. Patient previously had been consulted for a tubal ligation which was not done after delivery. Discussed contraception options and patient desires permanent sterilization. Patient understands that this is nonreversible. She understands that there are long-acting reversible contraceptive options. Discussed risk of contraceptive failure with risk of ectopic . All questions were answered and informed consent was signed. Procedure: The patient was taken to the OR where her identity and consented procedure were confirmed by routine surgical time out. She was induced under general anesthesia without difficulty. She was then prepped and draped in the normal sterile fashion in low lithotomy position. A villela catheter was placed and the Mirena IUD was removed with a speculum and ring forceps. Attention was then turned to the abdomen. A 5mm vertical incision was made in the infraumbilical fold. The Veress needle was inserted, and intraperitoneal placement confirmed with the drop test of sterile saline and appropriately low intraabdominal pressure reading. The abdomen was insufflated with carbon dioxide gas, and a 5mm Optiview trocar was placed under direct visualization. Examination revealed no injuries from abdominal entry. Additional local anesthetic was injected into the right lower quadrant, a 5mm incision was made, and a 5mm trocar was inserted under direct visualization. A 12mm trocar was placed in the suprapubic region in a similar fashion After injection of local anesthetic. Approximately 60 mL of hemoperitoneum was present. A left-sided tubal ectopic was visualized with active bleeding from the left fallopian tube. Using the LigaSure the left fallopian tube and ectopic were cauterized and transected along the mesosalpinx from the fimbria to the uterine cornua. The LigaSure was then used to transect the fallopian tube. Attention was turned to the right fallopian tube which was elevated with an atraumatic grasper. Using the ligasure the fallopian tube was cauterized and transected along the mesosalpinx from the fimbria to the uterine cornua. It was then transected across the tube. The EndoCatch bag was then placed through the 12mm port into the abdomen, and The bilateral fallopian tubes and ectopic were placed in the Endo Catch bag.The bag was then removed intact through the skin incision after removal of the trocar. Suction irrigation was used to evacuate hemoperitoneum. The Mo-Perez was placed through the 12mm port and the fascia was closed with 0-vicryl. All instruments and ports were then removed from the abdomen under direct visualization. The carbon dioxide gas was allowed to escape prior to removal of the infraumbilical port. The skin incisions were closed 4-0 Monocryl and injected with Marcaine. All sponge, lap, needle, and instrument counts were correct x 2. The patient tolerated the procedure well. She was extubated and transported to the PACU in stable condition. Eden Lancaster MD
[2023-07-07] MEDS ORDERED: HYDROmorphone 0.5 MG/0.5 ML SYRINGE ONE (17:43)
[2023-07-07] MEDS ORDERED: oxyCODONE 5 MG TABLET PO PRN ×2 (17:43→20:01)
--- NOTE | 2023-07-07 17:46 | Discharge Plan ---
Discharge Plan Problem Reviewed?: Yes Disposition: Home, Self Care Condition: Good Prescriptions: oxyCODONE [Roxicodone] 5 mg PO Q4HR PRN 5 Days #15 tab PRN Reason: Moderate Pain (Level 4-6) Diet: Regular Activity Restrictions: No heavy lifting for 2 wk Shower Restrictions: No Driving Restrictions: Yes (while taking pain medications ) No Smoking: If you smoke, Please STOP! Call for help.
--- NOTE | 2023-07-07 18:41 | ANESTHESIA POST OP EVALUATION ---
Anesthesia Post Eval - Post Anesthesia Eval Vitals: Last Vital Signs Temp 36.3 C L 07/07/23 17:55 Pulse 73 07/07/23 18:00 Resp 13 07/07/23 18:00 BP 93/55 L 07/07/23 18:00 Pulse Ox 99 07/07/23 18:00 O2 Flow Rate CV Function Including HR & BP: Stable Pain Control: Satisfactory Nausea & Vomiting: Negative Mental Status: Baseline Respiratory Status: Airway Patent Hydration Status: Satisfactory Anesthesia Complications: None
--- NOTE | 2023-07-07 19:59 | Discharge Plan ---
Discharge Plan Problem Reviewed?: Yes Disposition: Home, Self Care Condition: Good Prescriptions: oxyCODONE [Roxicodone] 5 mg PO Q4HR PRN 5 Days #15 tab PRN Reason: Moderate Pain (Level 4-6) oxyCODONE [Roxicodone] 5 mg PO Q4HR PRN 5 Days #15 tab PRN Reason: Moderate Pain (Level 4-6) Activity Restrictions: No heavy lifting for 2 wk Shower Restrictions: No Driving Restrictions: Yes (while taking pain medications ) No Smoking: If you smoke, Please STOP! Call for help.
[2023-07-07 20:07] VITALS: BP 108/66; O2SAT 98
== END 2023-07-07 20:15 | disposition home or self-care (01) ==
LOC: ED 11:30 → SDS 15:09 → FBP 18:21 → SDS 20:15
PROVIDERS: ATTEND Obstetrics & Gynecology Obstetrics
PROC: 0UT78ZZ Resection of Bilateral Fallopian Tubes, Via Natural or Artificial Opening Endoscopic (ICD-10-PCS; 2023-07-07)
PROC: 0UPD7HZ Removal of Contraceptive Device from Uterus and Cervix, Via Natural or Artificial Opening (ICD-10-PCS; 2023-07-07)
PROC: 10T28ZZ Resection of Products of Conception, Ectopic, Via Natural or Artificial Opening Endoscopic (ICD-10-PCS; principal; 2023-07-07 16:00)
DX: O00.102 Left tubal pregnancy without intrauterine pregnancy (principal); Z30.2 Encounter for sterilization; K66.1 Hemoperitoneum; J45.909 Unspecified asthma, uncomplicated; F17.200 Nicotine dependence, unspecified, uncomplicated
CPT/HCPCS: 36415; 58301; 59151; 76801; 76817; 80053; 83690; 84702; 85025; 86900; 86901; 96374; 99284; 99285; A9270; J1170; J7120